=== PATIENT | female | born 1975 | race Caucasian/White ===

== ENCOUNTER 2017-06-06 13:25 | Emergency (ER) | payer OTHER ==
[~2017-06-06] VITALS: Ht 154.9 cm; Wt 108.0 kg
[~2017-06-06 13:25] MED LIST: LORTA5
[2017-06-06 13:30] VITALS: BP 158/82; PULSE 76; RESP 15; TEMP 98.4; O2SAT 97
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
[2017-06-06] MEDS ORDERED: DIAZEPAM 10 MG TAB PO ONE (16:00)
[2017-06-06] MEDS ORDERED: IBUPROFEN 800 MG TAB PO ONE (16:00)
[2017-06-06] MEDS ORDERED: DIAZEPAM 5 MG TAB PO ONE (16:07)
[2017-06-06] MEDS ORDERED: IBUP1TAB7 PO (16:24)
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
== END 2017-06-06 16:39 | disposition home or self-care (01) ==
LOC: PHEFT 13:25
DX: S09.90XA Unspecified injury of head, initial encounter (principal); S29.019A Strain of muscle and tendon of unspecified wall of thorax, initial encounter; J45.909 Unspecified asthma, uncomplicated; Z88.8 Allergy status to other drugs, medicaments and biological substances; V49.40XA Driver injured in collision with unspecified motor vehicles in traffic accident, initial encounter
CPT/HCPCS: 70450; 72072; 99283

== ENCOUNTER 2017-06-15 13:23 | Emergency (ER) | payer OTHER ==
[~2017-06-15] VITALS: Ht 160 cm; Wt 108.4 kg
[~2017-06-15 13:23] MED LIST changes: +IBUP1TAB7 PO; -LORTA5
[2017-06-15 13:27] VITALS: BP 132/87; PULSE 72; RESP 16; TEMP 97.5; O2SAT 97
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
[2017-06-15 15:00] LABS: AUTOMATED NEUTROPHIL # 5.6 TH/MM3 (1.8-7.7); BASOPHIL % 0.6 % (0.0-2.0); EOSINOPHIL # 0.1 TH/MM3 (0-0.4); EOSINOPHIL % 1.6 % (0.0-4.0); HEMATOCRIT 40.3 % (35.0-46.0); HEMOGLOBIN 13.1 GM/DL (11.6-15.3); LYMPH % 19.3 % (9.0-44.0); LYMPHOCYTE # 1.4 TH/MM3 (1.0-4.8); MEAN CELL VOLUME 82.8 FL (80.0-100.0); MEAN CORPUSCULAR HEMOGLOBIN 27.1 PG (27.0-34.0); MEAN CORPUSCULAR HGB CONC 32.7 % (32.0-36.0); MEAN PLATELET VOLUME 10.4 FL (7.0-11.0); MONO % 5.3 % (0.0-8.0); MONOCYTE # 0.4 TH/MM3 (0-0.9); NEUT % 73.2 % (16.0-70.0); PLATELET COUNT 174 TH/MM3 (150-450); RED BLOOD COUNT 4.86 MIL/MM3 (4.00-5.30); RED CELL DISTRIBUTION WIDTH 12.4 % (11.6-17.2); WHITE BLOOD COUNT 7.5 TH/MM3 (4.0-11.0)
[2017-06-15 15:10] LABS: CHLORIDE 104 MEQ/L (98-107); SODIUM (NA) 138 MEQ/L (136-145)
[2017-06-15 15:13] LABS: CALCIUM 9.3 MG/DL (8.5-10.1)
[2017-06-15 15:14] LABS: ALBUMIN 3.2 GM/DL (3.4-5.0); BICARBONATE 27.8 MEQ/L (21.0-32.0); BLOOD UREA NITROGEN 12 MG/DL (7-18); GLUCOSE,RANDOM 86 MG/DL (74-106)
[2017-06-15 15:17] LABS: ALT (GPT) 75 U/L (10-53); AST (GOT) 39 U/L (15-37); CREATININE 0.77 MG/DL (0.50-1.00); GLOMERULAR FILTRATION RATE 83 ML/MIN (>89)
[2017-06-15 15:19] LABS: TOTAL BILIRUBIN ADULT 0.5 MG/DL (0.2-1.0); TOTAL PROTEIN 7.1 GM/DL (6.4-8.2)
[2017-06-15 15:20] LABS: ALKALINE PHOSPHATASE 82 U/L (45-117)
[2017-06-15 15:59] LABS: BILIRUBIN, URINE NEG (NEG); BLOOD, URINE NEG (NEG); GLUCOSE,URINE NEG (NEG); KETONE, URINE NEG (NEG); NITRITE,URINE NEG (NEG); PH, URINE 5.5 (5.0-8.5); URINE COLOR YELLOW (YELLW/STRAW); URINE LEUKOCYTE ESTERASE NEG (NEG)
[2017-06-15 16:28] LABS: SQUAMOUS EPITHELIAL CELL URINE >8 /hpf (0-5); WBC, URINE 0-2 /hpf (0-5)
[2017-06-15 16:29] LABS: BACTERIA, URINE RARE /hpf
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
[2017-06-15] MEDS ORDERED: IOHEXOL 350 MG/ML 10 ML VIAL (for RAD DIAG) IVCONTRAST ONE (16:56)
[2017-06-15] MEDS ORDERED: ACETAMINOPHEN/HYDROcodone 325 MG/5 MG TAB PO ONE ×2 (17:15→18:30)
[2017-06-15 17:44] VITALS: RESP 18
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
[2017-06-15] MEDS ORDERED: TYLETAB34 PO (19:39)
== END 2017-06-15 20:06 | disposition home or self-care (01) ==
LOC: PHEFT 13:23
DX: N83.201 Unspecified ovarian cyst, right side (principal); M25.551 Pain in right hip; M25.552 Pain in left hip; J45.909 Unspecified asthma, uncomplicated
CPT/HCPCS: 74177; 76856; 80053; 81001; 84703; 85025; 93975; 99285; Q9967